=== PATIENT | female | born 1960 | race Caucasian/White ===

== ENCOUNTER 2017-06-09 06:55 | Emergency (ER) | payer BC, OTHER ==
[2017-06-09 07:37] VITALS: TEMP 98.1
--- NOTE | 2017-06-09 07:55 | C.PDOC ---
History Of Present Illness Patient is a 56 y/o female, whose PMHx includes anemia, presents to the ED for evaluation of back pain. Patient states that pain starts from lower back and radiates down to back of both legs. Patient reports having similar symptoms in the past, but states her symptoms were never this severe. Denies any trauma, fall, bowel/urine incontinence or retention, extremity weakness, or numbness. Pt also complains of chills associated with mild cough. Otherwise, denies any fever, shortness of breath, chest pain, abdominal pain, n/v/d, or any other associated symptoms at this time. Time Seen by Provider: 06/09/17 07:36 Chief Complaint (Nursing): Lower Extremity Problem/Injury History Per: Patient History/Exam Limitations: no limitations Onset/Duration Of Symptoms: Days Current Symptoms Are (Timing): Still Present Quality Of Discomfort: "Pain" Previous Symptoms: Back Pain. denies: Prior Injury, Prior Surgery Associated Symptoms: None. denies: Incontinence, New Weakness, New Numbness Exacerbating Factor(s): Nothing Recent travel outside of the [place]: No Additional History Per: Patient Past Medical History Reviewed: Historical Data, Nursing Documentation, Vital Signs Vital Signs: Last Vital Signs Temp 98.1 F 06/09/17 07:05 Pulse 73 06/09/17 07:05 Resp 20 06/09/17 07:05 BP 117/80 06/09/17 07:05 Pulse Ox 99 06/09/17 08:02 - Medical History PMH: Anemia Denies: Chronic Kidney Disease - [facility] Procedures EXCISION OF SMALL INTESTINE, ENDO, DIAGN (08/12/16) INSPECTION OF LOWER INTESTINAL TRACT, ENDO (08/12/16) TRANSFUSE NONAUT RED BLOOD CELLS IN PERIPH VEIN, PERC (08/12/16) Family History: States: Unknown Family Hx - Social History Hx Tobacco Use: No Hx Alcohol Use: No Hx Substance Use: No Review Of Systems Except As Marked, All Systems Reviewed And Found Negative. Constitutional: Positive for: Chills. Negative for: Fever Cardiovascular: Negative for: Chest Pain, Palpitations Respiratory: Positive for: Cough. Negative for: Shortness of Breath, Sputum Gastrointestinal: Negative for: Nausea, Vomiting, Abdominal Pain, Diarrhea Genitourinary: Negative for: Dysuria, Frequency, Incontinence, Hematuria Musculoskeletal: Positive for: Back Pain Skin: Negative for: Rash, Bruising Neurological: Negative for: Weakness, Numbness Physical Exam - Physical Exam Additional Physical Exam Comments: Constitutional: No acute distress. Head: Normocephalic. Atraumatic. Eyes: PERRL. ENT: Moist mucous membranes. Neck: Supple. Cardiovascular: Regular rate. Radial pulses 2+ bilaterally. Chest: No tenderness. Respiratory: Clear to auscultation bilaterally. GI: Soft. Nontender. Nondistended. Back: No CVA tenderness. No midline tenderness. Musculoskeletal: No tenderness or swelling of extremities. Skin: No rash. Neurologic: Alert, no focal deficit. ED Course And Treatment - Laboratory Results Result Diagrams: 06/09/17 08:36 06/09/17 08:36 O2 Sat by Pulse Oximetry: 99 (RA) Pulse Ox Interpretation: Normal Medical Decision Making Medical Decision Making: Plan: * Blood work * Urinalysis * CXR * IV fluids * Toradol * Reassess and dispo IMPRESSION: No interval infiltrate. Multiple pulmonary nodules and similar appearing with . Pulmonary granulomas are favored. If earlier chest x-rays pre 2015 are available these would be helpful in ensuring a longer period of stability. Progress note: On re-evaluation, patient is resting comfortably, with improvement of back pain. No fever, no bony tenderness, no numbness, no weakness , or abdominal pain. Patient is ambulatory in the emergency department with no signs of discomfort. Vital signs normal. Labs unremarkable. Will treat supportively with analgesia, f/u PMD, return to ER for worsening pain, urinary or bowel symptoms, numbness, weakness, or any other problem. Copy of CXR report given to patient. Disposition - Disposition Disposition: HOME/ ROUTINE Disposition Time: 09:08 Condition: STABLE Prescriptions: Ibuprofen [Motrin] 600 mg PO Q6 #25 tab Instructions: Lumbar Radiculopathy (ED) Forms: [employer] (German) - Clinical Impression Clinical Impression: Lumbar radiculopathy - Scribe Statement The provider has reviewed the documentation as recorded by the Carlota Eisenberg Provider Attestation: All medical record entries made by the Tingibnate were at my direction and personally dictated by me. I have reviewed the chart and agree that the record accurately reflects my personal performance of the history, physical exam, medical decision making, and the department course for this patient. I have also personally directed, reviewed, and agree with the discharge instructions and disposition.
--- NOTE | 2017-06-09 08:03 | RAD ---
HISTORY: cough, chills COMPARISON: 08/12/2016 TECHNIQUE: Chest PA and lateral FINDINGS: LUNGS: No active pulmonary disease. The prior central pulmonary venous congestion/ crowded vessels appear less pronounced on the current study. Multiple granulomas are suspect -in the left mid lung zone and possibly at the right lung base. Although other pulmonary type nodules are not excluded, given the density it and stability, granulomas are favored. PLEURA: No significant pleural effusion identified. No pneumothorax apparent. CARDIOVASCULAR: Normal. OSSEOUS STRUCTURES: No significant abnormalities. VISUALIZED UPPER ABDOMEN: Normal. OTHER FINDINGS: None. IMPRESSION: No interval infiltrate. Multiple pulmonary nodules and similar appearing with 08/12/2016. Pulmonary granulomas are favored. If earlier chest x-rays pre 2016 are available these would be helpful in ensuring a longer period of stability.
[2017-06-09] MEDS ORDERED: Sodium Chloride 0.9% 1,000 ML ONE (08:14)
[2017-06-09] MEDS: Sodium Chloride 0.9% 1,000 ML IV STA ×2 (08:25→08:50)
[2017-06-09 08:41] LABS: BASO # 0.1 K/uL (0.0-0.2); EOS # 0.1 K/uL (0.0-0.7); EOS % 2.5 % (0.0-4.0); HEMATOCRIT 30.7 % (34.0-47.0); LYMPH # 2.4 K/uL (1.0-4.3); LYMPH % 47.9 % (20.0-40.0); MEAN CORPUSCULAR HEMOGLOBIN 26.3 pg (27.0-31.0); MEAN CORPUSCULAR HGB CONC 32.2 g/dL (33.0-37.0); MEAN PLATELET VOLUME 8.6 fL (7.2-11.7); MONO # 0.4 K/uL (0.0-0.8); MONO % 6.9 % (0.0-10.0); NRBC % 0.1 % (0.0-2.0); RED CELL DISTRIBUTION WIDTH 17.4 % (11.5-14.5); WHITE BLOOD COUNT 5.1 K/uL (4.8-10.8)
[2017-06-09 08:43] LABS: MEAN CELL VOLUME 81.8 fL (81.0-99.0)
[2017-06-09 08:48] LABS: RBC URINE 1 /hpf (0-3); URINE BILIRUBIN NEGATIVE (NEGATIVE); URINE BLOOD NEGATIVE (NEGATIVE); URINE COLOR Yellow (YELLOW); URINE GLUCOSE (UA) NORMAL (Normal); URINE KETONE NEGATIVE (NEGATIVE); URINE LEUKOCYTE ESTERASE NEG Leu/uL (Negative); URINE PROTEIN NEGATIVE (NEGATIVE); URINE UROBILINOGEN NORMAL mg/dL (0.2-1.0); WBC URINE 1 /hpf (0-5)
[2017-06-09 09:01] LABS: CHLORIDE 107 mmol/L (98-107); SODIUM 141 mmol/L (132-148)
[2017-06-09 09:04] LABS: ALB/GLOB RATIO 1.3 (1.0-2.1); ALKALINE PHOSPHATASE 61 U/L (38-126); ALT/SGPT 30 U/L (9-52); AST/SGOT 30 U/L (14-36); BILIRUBIN,TOTAL 0.5 mg/dL (0.2-1.3); BLOOD UREA NITROGEN 15 mg/dL (7-17); CARBON DIOXIDE 24 mmol/L (22-30); GFR AFRICAN-AMERICAN > 60; GLUCOSE,RANDOM 83 mg/dL (65-105); TOTAL PROTEIN 6.9 g/dL (6.3-8.3)
[2017-06-09 09:05] LABS: CALCIUM 8.5 mg/dl (8.6-10.4)
[2017-06-09 09:25] VITALS: BP 100/65; PULSE 76; RESP 18; O2SAT 98
== END 2017-06-09 09:35 | disposition home or self-care (01) ==
LOC: C.ER 06:55
DX: M54.16 Radiculopathy, lumbar region (principal)
CPT/HCPCS: 71020; 80053; 81001; 84703; 85025; 94770; 96374; 99285; J1885

== ENCOUNTER 2018-04-07 06:50 | Emergency (ER) | payer OTHER ==
--- NOTE | 2018-04-07 07:58 | C.PDOC ---
History Of Present Illness 57 years old female presents to ED by transportation for complaints of sharp bilateral lower back pain that began yesterday. Patient states pain is worsened with movement and walking. Patient's prior evaluation was 05/2017 for similar complaints. Patient currently states pain is more intense than prior. Denies other associated symptoms, or recent trauma. Patient also states she has not taken any medications for relief. VIA TRANS RECUR B/L LBP SINCE YEST. RADIATION B/L POST THIGH WORSE W MOVEMENT, WALKING. SHARP. PRIOR ER EVAL 05/2017 FOR SAME, CURRENT PAIN MORE INTENSE THAN PRIOR. NO OTHER ASSOC SX, TRAUMA. NO PAIN MEDS TRIED. EXAM MILD DIST NONTOXIC BACK AROM WO DIFF; B/L LOWER BACK TEND NO CVAT, NO SPINAL TEND; REPRODUC PAIN W ROM NEURO NO FOCAL DEF SKIN NO LESIONS REMAINDER NEG Time Seen by Provider: 04/07/18 07:28 Chief Complaint (Nursing): Back Pain History Per: Patient History/Exam Limitations: no limitations Onset/Duration Of Symptoms: Days (1) Current Symptoms Are (Timing): Still Present Quality Of Discomfort: Sharp Previous Symptoms: Back Pain Associated Symptoms: None Exacerbating Factor(s): Movement, Other (Walking) Recent travel outside of the [place]: No Past Medical History Reviewed: Historical Data, Nursing Documentation, Vital Signs Vital Signs: Last Vital Signs Temp 98 F 04/07/18 09:24 Pulse 66 04/07/18 09:24 Resp 20 04/07/18 09:24 BP 127/84 04/07/18 09:24 Pulse Ox 96 04/07/18 09:24 - Medical History PMH: Anemia - [facility] Procedures EXCISION OF SMALL INTESTINE, ENDO, DIAGN (08/12/16) INSPECTION OF LOWER INTESTINAL TRACT, ENDO (08/12/16) TRANSFUSE NONAUT RED BLOOD CELLS IN PERIPH VEIN, PERC (08/12/16) Family History: States: Unknown Family Hx - Social History Hx Tobacco Use: No Hx Alcohol Use: No Hx Substance Use: No - Immunization History Hx Tetanus Toxoid Vaccination: No Hx Influenza Vaccination: No Hx Pneumococcal Vaccination: No Review Of Systems Constitutional: Negative for: Fever, Chills Gastrointestinal: Negative for: Nausea, Vomiting, Abdominal Pain, Diarrhea Musculoskeletal: Positive for: Back Pain (Lower back) Skin: Negative for: Rash Neurological: Negative for: Weakness, Numbness Physical Exam - Physical Exam Appears: Non-toxic, In Acute Distress (Mild) Skin: Warm, Dry, No Other (Lesions) Head: Atraumatic, Normacephalic Eye(s): bilateral: Normal Inspection, PERRL, EOMI Oral Mucosa: Moist Neck: Supple Chest: Symmetrical, No Tenderness Cardiovascular: Rhythm Regular, No Murmur Respiratory: Normal Breath Sounds, No Decreased Breath Sounds, No Rales, No Rhonchi, No Wheezing Gastrointestinal/Abdominal: Soft, No Tenderness Back: No CVA Tenderness, No Paraspinal Tenderness, Other (Bilateral lower back tenderness; Active ROM without difficulty; Reproducible pain with ROM) Extremity: Normal ROM Extremity: Bilateral: Atraumatic, Normal Color And Temperature, Normal ROM Pulses: Left Radial: Normal, Right Radial: Normal Neurological/Psych: Oriented x3 (Awake and alert ), Normal Speech, Other (No focal deficits ) Disoriented To: Person ED Course And Treatment O2 Sat by Pulse Oximetry: 97 (RA) Pulse Ox Interpretation: Normal Reevaluation Time: 10:04 Reassessment Condition: Improved (PS FEELS BETTER. AMBUL WO DIFF.) Medical Decision Making Medical Decision Making: Administered Lidoderm, Toradol, Tylenol, Neurontin, and Flexeril. Disposition Counseled Patient/Family Regarding: Diagnosis, Need For Followup, Rx Given - Disposition Referrals: [facility] [Outside] [facility] [Outside] [facility] [Other] Disposition: HOME/ ROUTINE Disposition Time: 10:05 Condition: IMPROVED Prescriptions: Cyclobenzaprine [Flexeril] 10 mg PO TID #15 tab Dexamethasone 12 mg PO ONCE #2 tab Gabapentin [Neurontin] 300 mg PO TID #30 cap Ibuprofen [Motrin] 600 mg PO Q6 #30 tab Instructions: Sciatica (DC) Forms: [employer] - [employer] (Montenegrin) - Clinical Impression Clinical Impression: Sciatica, Low back pain - Scribe Statement The provider has reviewed the documentation as recorded by the Tingibnate Ramos All medical record entries made by the Scribe were at my direction and personally dictated by me. I have reviewed the chart and agree that the record accurately reflects my personal performance of the history, physical exam, medical decision making, and the department course for this patient. I have also personally directed, reviewed, and agree with the discharge instructions and disposition.
[2018-04-07] MEDS ORDERED: Lidocaine 5% Patch TD STA (08:01)
[2018-04-07] MEDS ORDERED: Lidocaine 5% Patch TD ONE (08:16)
[2018-04-07 09:26] VITALS: PULSE 66
[2018-04-07 10:33] VITALS: BP 123/73; RESP 18; TEMP 98.5; O2SAT 98
== END 2018-04-07 10:34 | disposition home or self-care (01) ==
LOC: C.ER 06:50
DX: M54.42 Lumbago with sciatica, left side (principal); M54.41 Lumbago with sciatica, right side
CPT/HCPCS: 96372; 99284; J1885

== ENCOUNTER 2019-02-19 07:34 | Emergency (ER) | payer BC, OTHER ==
[2019-02-19 07:52] VITALS: O2SAT 97
--- NOTE | 2019-02-19 08:19 | C.PDOC ---
History Of Present Illness 58 y/o F c PMHx anemia p/w general weakness x 2 days. Reports fatigue, sleeping often, blurriness of vision. Patient denies any bleeding or black stool. Denies chest pain, dyspnea, vomiting. Reports taking iron pills. Time Seen by Provider: 02/19/19 07:45 Chief Complaint (Nursing): Dizziness/Lightheaded History Per: Patient History/Exam Limitations: no limitations Onset/Duration Of Symptoms: Days (x2) Current Symptoms Are (Timing): Still Present Seizure Or Post-ictal Symptoms: None Recent travel outside of the [place]: No Past Medical History Reviewed: Historical Data, Nursing Documentation, Vital Signs Vital Signs: Last Vital Signs Temp 98.6 F 02/19/19 07:37 Pulse 83 02/19/19 07:37 Resp 16 02/19/19 07:37 BP 127/85 02/19/19 07:37 Pulse Ox 97 02/19/19 07:37 - Medical History PMH: Anemia, Hyperlipidemia Denies: Chronic Kidney Disease - [facility] Procedures EXCISION OF SMALL INTESTINE, ENDO, DIAGN (08/12/16) INSPECTION OF LOWER INTESTINAL TRACT, ENDO (08/12/16) TRANSFUSE NONAUT RED BLOOD CELLS IN PERIPH VEIN, PERC (08/12/16) Family History: States: Unknown Family Hx - Social History Hx Tobacco Use: No Hx Alcohol Use: No Hx Substance Use: No - Immunization History Hx Tetanus Toxoid Vaccination: No Hx Influenza Vaccination: Yes Hx Pneumococcal Vaccination: No Review Of Systems Except As Marked, All Systems Reviewed And Found Negative. Constitutional: Negative for: Fever Cardiovascular: Negative for: Chest Pain Physical Exam - Physical Exam Additional Physical Exam Comments: gen nad head nc/at eyes perrl ent mmm neck supple chest not tender cv reg rate lungs cta b/l abd sof nt back no cva tenderness skin no rash extremities no edema neuro alert, no focal deficit ED Course And Treatment - Laboratory Results Result Diagrams: 02/19/19 08:44 02/19/19 08:44 O2 Sat by Pulse Oximetry: 97 (RA) Pulse Ox Interpretation: Normal Medical Decision Making Medical Decision Making: differential includes but not limited to anemia, dehydration, arrhythmia, infection. ekg nsr 68 bpm, no st/t wave changes. cxr no pneumonia or consolidation, no change from previous ua no infection hb baseline cmp unremarkable. Will discharge, f/u PMD, return to ED for worsening pain, fever, dyspnea, vomiting, syncope, or any other problem. Disposition - Disposition Referrals: Joyce Farah [Staff Provider] - Disposition: HOME/ ROUTINE Disposition Time: 09:19 Condition: GOOD Instructions: Fatigue (DC), Weakness (ED) Forms: [facility] (Eritrean), Gen Discharge Inst Thai - Clinical Impression Clinical Impression: General weakness
[2019-02-19 08:51] LABS: BASO # 0.1 K/uL (0.0-0.2); BASO % 1.2 % (0.0-2.0); EOS # 0.1 K/uL (0.0-0.7); HEMOGLOBIN 10.8 g/dL (11.0-16.0); LYMPH # 1.6 K/uL (1.0-4.3); LYMPH % 35.3 % (20.0-40.0); MEAN CELL VOLUME 85.4 fL (81.0-99.0); MEAN CORPUSCULAR HEMOGLOBIN 27.9 pg (27.0-31.0); MEAN CORPUSCULAR HGB CONC 32.6 g/dL (33.0-37.0); MEAN PLATELET VOLUME 8.8 fL (7.2-11.7); MONO # 0.4 K/uL (0.0-0.8); MONO % 8.5 % (0.0-10.0); NEUT # 2.5 K/uL (1.8-7.0); NRBC % 0.1 % (0.0-2.0); RBC 3.89 Mil/uL (3.80-5.20); RED CELL DISTRIBUTION WIDTH 16.7 % (11.5-14.5); WHITE BLOOD COUNT 4.6 K/uL (4.8-10.8)
[2019-02-19 08:56] LABS: SQUAMOUS EPITHIAL 1 /hpf (0-5); URINE BILIRUBIN NEGATIVE (NEGATIVE); URINE BLOOD NEGATIVE (NEGATIVE); URINE CLARITY Hazy (Clear); URINE COLOR Yellow (YELLOW); URINE GLUCOSE (UA) NORMAL (Normal); URINE LEUKOCYTE ESTERASE NEG Leu/uL (Negative); URINE PROTEIN NEGATIVE (NEGATIVE); URINE UROBILINOGEN NORMAL mg/dL (0.2-1.0)
[2019-02-19 09:11] LABS: ALB/GLOB RATIO 1.4 (1.0-2.1); ALBUMIN 4.1 g/dL (3.5-5.0); ALT/SGPT 33 U/L (9-52); AST/SGOT 38 U/L (14-36); BLOOD UREA NITROGEN 15 mg/dL (7-17); CALCIUM 9.1 mg/dl (8.6-10.4); GFR NON-AFRICAN AMERICAN > 60
[2019-02-19] MEDS ORDERED: Sodium Chloride 0.9% 1,000 ML IV STA (09:19)
[2019-02-19] MEDS ORDERED: Sodium Chloride 0.9% 1,000 ML ONE (09:41)
[2019-02-19 09:58] VITALS: BP 130/84; PULSE 80; RESP 18; TEMP 98.1
--- NOTE | 2019-02-19 10:25 | RAD ---
Date of service: 02/19/2019 HISTORY: gen weakness COMPARISON: 06/09/2017 TECHNIQUE: 1 view obtained. FINDINGS: LUNGS: No active pulmonary disease. PLEURA: No significant pleural effusion identified, no pneumothorax apparent. CARDIOVASCULAR: No aortic atherosclerotic calcification present. Normal cardiac size. No pulmonary vascular congestion. OSSEOUS STRUCTURES: No significant abnormalities. VISUALIZED UPPER ABDOMEN: Normal. OTHER FINDINGS: None. IMPRESSION: No active disease.
--- NOTE | 2019-02-22 12:53 | CARD ---
APPROVED REPORT Date of service: 02/19/2019 EKG Measurement Heart [id number] <Conclusion> Normal sinus rhythm Normal ECG
== END 2019-02-19 10:00 | disposition home or self-care (01) ==
LOC: C.ER 07:34
DX: E78.5 Hyperlipidemia, unspecified (principal)
CPT/HCPCS: 71045; 80053; 81001; 82948; 83735; 84100; 85025; 86850; 86900; 87086; 99285; J7030